=== PATIENT | male | born 1955 | race Caucasian/White ===

== ENCOUNTER 2019-10-21 20:41 | Emergency (ER) | payer BC ==
[2019-10-21] MEDS ORDERED: Ibuprofen 800 MG Tab PO ONE (21:13)
[2019-10-21] MEDS ORDERED: Acetaminophen 500 MG Tab PO ONE (21:13)
--- NOTE | 2019-10-21 21:17 | EDM.PDOC ---
ED HPI GENERAL MEDICAL PROBLEM - General Chief Complaint: Upper Extremity Injury/Pain Stated Complaint: WRIST PAIN Time Seen by Provider: 10/21/19 21:00 Source of Information: Reports: Patient History Limitations: Reports: No Limitations - History of Present Illness INITIAL COMMENTS - FREE TEXT/NARRATIVE: Patient presented to the ED because of right wrist pain. The pain is sharp,9/10 / and worse with movements. there is no recent trauma or injury. - Related Data Allergies Allergy/AdvReac Type Severity Reaction Status Date / Time morphine Allergy Nausea and Verified 02/15/18 12:03 Vomiting Home Meds: Home Meds Aspirin [Halfprin] 81 mg PO DAILY 02/15/18 [History] Gabapentin [Neurontin] 300 mg PO BID 02/15/18 [History] Losartan [Cozaar] 100 mg PO DAILY 02/15/18 [History] Metoprolol Succinate 100 mg PO DAILY 02/15/18 [History] hydroCHLOROthiazide [Hydrochlorothiazide] 50 mg PO DAILY 02/15/18 [History] oxyCODONE 15 mg PO ASDIRECTED PRN 02/15/18 [History] oxyCODONE HCl [Oxycontin] 20 gm PO BID 02/15/18 [History] traZODone HCl [Trazodone HCl] 100 mg PO BEDTIME PRN 02/15/18 [History] Past Medical History HEENT History: Reports: None Cardiovascular History: Reports: Afib, Arrhythmia, Hypertension Respiratory History: Reports: None Gastrointestinal History: Reports: None, Other (See Below) Other Gastrointestinal History: COLITIS Genitourinary History: Reports: None Musculoskeletal History: Reports: Fracture Neurological History: Reports: None Psychiatric History: Reports: Depression Endocrine/Metabolic History: Reports: Obesity/BMI 30+ Hematologic History: Reports: Anticoagulation Therapy Immunologic History: Reports: None Oncologic (Cancer) History: Reports: None Dermatologic History: Reports: None - Infectious Disease History Infectious Disease History: Reports: None - Past Surgical History Head Surgeries/Procedures: Reports: None GI Surgical History: Reports: Colonoscopy Neurological Surgical History: Reports: Spinal Fusion Musculoskeletal Surgical History: Reports: Hip Replacement, Joint Replacement, ORIF Social & Family History - Family History GI: Reports: Colon Polyps Other GI Family History: BROTHERS WITH COLON CANCER - Tobacco Use Smoking Status *Q: Former Smoker Used Tobacco, but Quit: Yes Month/Year Tobacco Last Used: 07/1999 - Caffeine Use Caffeine Use: Reports: Coffee - Recreational Drug Use Recreational Drug Use: No Review of Systems - Review of Systems Review Of Systems: See Below Constitutional: Reports: No Symptoms Ears: Reports: No Symptoms Nose: Reports: No Symptoms Mouth/Throat: Reports: No Symptoms Respiratory: Reports: No Symptoms Cardiovascular: Reports: No Symptoms GI/Abdominal: Reports: No Symptoms Genitourinary: Reports: No Symptoms Musculoskeletal: Reports: Other (wrist pain) Skin: Reports: No Symptoms Neurological: Reports: No Symptoms ED EXAM, GENERAL - Physical Exam Exam: See Below Exam Limited By: No Limitations General Appearance: Alert, No Apparent Distress Ears: Normal Canal Nose: Normal Inspection, Normal Mucosa Throat/Mouth: Normal Inspection, Normal Lips Head: Atraumatic, Normocephalic Neck: Normal Inspection, Supple, Non-Tender, Full Range of Motion Respiratory/Chest: No Respiratory Distress, Lungs Clear, Normal Breath Sounds, No Accessory Muscle Use, Chest Non-Tender Cardiovascular: Normal Peripheral Pulses, Regular Rate, Rhythm, No Edema, No Gallop, No JVD, No Murmur, No Rub, JVD GI/Abdominal: Normal Bowel Sounds, Soft, Non-Tender, No Organomegaly Extremities: Normal Inspection, Normal Range of Motion, Other (tenderness right wrist) Course - Vital Signs Text/Narrative:: ibuprofen 800 mg pox1 tylenol 1000 mg po x1 Last Recorded V/S: Last Vital Signs Temp 37.1 C 10/21/19 20:58 Pulse 110 H 10/21/19 20:58 Resp 14 10/21/19 20:58 BP 149/117 H 10/21/19 20:58 Pulse Ox 96 10/21/19 20:58 - Orders/Labs/Meds Meds: Medications Discontinued Medications Generic Name Dose Route Start Last Admin Trade Name Adrienne PRN Reason Stop Dose Admin Acetaminophen 1,000 mg 10/21/19 21:13 10/21/19 21:27 Tylenol Extra Strength PO 10/21/19 21:14 1,000 mg ONETIME ONE Administration Ibuprofen 800 mg 10/21/19 21:13 10/21/19 21:27 Motrin PO 10/21/19 21:14 800 mg ONETIME ONE Administration Departure - Departure Time of Disposition: 21:15 Disposition: Home, Self-Care 01 Condition: Good Clinical Impression: Sprain of wrist, right - Discharge Information Instructions: Wrist Sprain, Adult Referrals: Jayden Hearn MD [Primary Care Provider] - Forms: ED Department Discharge Additional Instructions: please read discharge instructions on wrist sprain apply ice elevate take 2 aleve with tylenol 1000 mg twice daily as needed for pain follow up as needed Sepsis Event Note - Evaluation Sepsis Screening Result: No Definite Risk - Focused Exam Vital Signs: Vital Signs Temp Pulse Resp BP Pulse Ox 10/21/19 20:58 37.1 C 110 H 14 149/117 H 96 Date Exam was Performed: 10/21/19 Time Exam was Performed: 21:51
== END 2019-10-21 21:20 | disposition home or self-care (01) ==
LOC: FB.ED 20:41
DX: S63.501A Unspecified sprain of right wrist, initial encounter (principal); Z88.5 Allergy status to narcotic agent; I48.91 Unspecified atrial fibrillation; I10 Essential (primary) hypertension; F32.9 Major depressive disorder, single episode, unspecified; E66.9 Obesity, unspecified; Z68.33 Body mass index [BMI] 33.0-33.9, adult; Z79.82 Long term (current) use of aspirin; Z79.899 Other long term (current) drug therapy; Z87.891 Personal history of nicotine dependence; X58.XXXA Exposure to other specified factors, initial encounter
CPT/HCPCS: 99283; A9270

== ENCOUNTER 2021-04-02 07:58 | Emergency (ER) | payer MEDICARE, BC ==
[2021-04-02] MEDS ORDERED: Aspirin 81 MG Tab.Chew PO STA (08:05)
[2021-04-02] MEDS ORDERED: Labetalol 20 MG/4 ML Syringe IVPUSH STA (08:05)
[2021-04-02] MEDS ORDERED: hydrALAZINE 20 MG/ML SDV IVPUSH STA ×2 (08:05→08:53)
[2021-04-02] MEDS: Sodium Chloride 0.9% 10 ML Syringe FLUSH PRN ×2 (08:10→08:40)
--- NOTE | 2021-04-02 08:26 | EDM.PDOC ---
ED HPI GENERAL MEDICAL PROBLEM - General Stated Complaint: Left shoulder pain Time Seen by Provider: 04/02/21 08:00 Source of Information: Reports: Patient History Limitations: Reports: No Limitations - History of Present Illness INITIAL COMMENTS - FREE TEXT/NARRATIVE: Patient presented to the ED because of a left shoulder pain. He attributed it to lifting a 40 lb furniture. He then checked his BP and it was 225/117, denies any chest pain, dyspnea, dizziness,headache, N/V. He noticed a RLE edema for the past week. He didn't take his metoprolol and HCTZ for HTN for 3 days. Left Shoulder Pain Score (Numeric/FACES): 8 - Related Data Allergies Allergy/AdvReac Type Severity Reaction Status Date / Time morphine Allergy Nausea and Verified 04/02/21 09:25 Vomiting Home Meds: Home Meds Aspirin [Halfprin] 81 mg PO DAILY 02/15/18 [History] Gabapentin [Neurontin] 300 mg PO BID 02/15/18 [History] Losartan [Cozaar] 100 mg PO DAILY 02/15/18 [History] Metoprolol Succinate 100 mg PO DAILY 02/15/18 [History] hydroCHLOROthiazide [Hydrochlorothiazide] 50 mg PO DAILY 02/15/18 [History] oxyCODONE 15 mg PO ASDIRECTED PRN 02/15/18 [History] oxyCODONE HCl [Oxycontin] 20 gm PO BID 02/15/18 [History] traZODone HCl [Trazodone HCl] 100 mg PO BEDTIME PRN 02/15/18 [History] Past Medical History HEENT History: Reports: None Cardiovascular History: Reports: Afib, Arrhythmia, Hypertension Respiratory History: Reports: None Gastrointestinal History: Reports: None, Other (See Below) Other Gastrointestinal History: COLITIS Genitourinary History: Reports: None Musculoskeletal History: Reports: Fracture Neurological History: Reports: None Psychiatric History: Reports: Depression Endocrine/Metabolic History: Reports: Obesity/BMI 30+ Hematologic History: Reports: Anticoagulation Therapy Immunologic History: Reports: None Oncologic (Cancer) History: Reports: None Dermatologic History: Reports: None - Infectious Disease History Infectious Disease History: Reports: None - Past Surgical History Head Surgeries/Procedures: Reports: None GI Surgical History: Reports: Colonoscopy Neurological Surgical History: Reports: Spinal Fusion Musculoskeletal Surgical History: Reports: Hip Replacement, Joint Replacement, ORIF Social & Family History - Family History Family Medical History: No Pertinent Family History GI: Reports: Colon Polyps Other GI Family History: BROTHERS WITH COLON CANCER - Caffeine Use Caffeine Use: Reports: Coffee ED ROS GENERAL - Review of Systems Review Of Systems: See Below Constitutional: Reports: No Symptoms HEENT: Reports: No Symptoms Respiratory: Reports: No Symptoms Cardiovascular: Reports: No Symptoms Endocrine: Reports: No Symptoms GI/Abdominal: Reports: No Symptoms : Reports: No Symptoms Musculoskeletal: Reports: Shoulder Pain Skin: Reports: No Symptoms Neurological: Reports: No Symptoms Psychiatric: Reports: No Symptoms ED EXAM, GENERAL - Physical Exam Exam: See Below Exam Limited By: No Limitations General Appearance: Alert, No Apparent Distress Eye Exam: Bilateral Eye: PERRL Ears: Normal External Exam, Normal Canal Nose: Normal Inspection, Normal Mucosa, No Blood Throat/Mouth: Normal Inspection, Normal Lips, Normal Teeth, Normal Gums Head: Atraumatic, Normocephalic Neck: Normal Inspection, Supple, Non-Tender, Full Range of Motion Respiratory/Chest: No Respiratory Distress, Lungs Clear, Normal Breath Sounds, No Accessory Muscle Use, Chest Non-Tender Cardiovascular: Normal Peripheral Pulses, Regular Rate, Rhythm, No Edema, No Gallop, No JVD, No Murmur GI/Abdominal: Normal Bowel Sounds, Soft, Non-Tender, No Organomegaly, No Distention, No Abnormal Bruit Back Exam: Normal Inspection, Full Range of Motion Extremities: Normal Inspection, Normal Range of Motion, Non-Tender, No Pedal Edema, Normal Capillary Refill, Pedal Edema Neurological: Alert, Oriented, CN II-XII Intact, Normal Cognition Psychiatric: Normal Affect, Normal Mood Skin Exam: Warm #1 Interpretation EKG Date: 04/02/21 Time: 07:56 Rhythm: NSR Rate (Beats/Min): 84 [place]: Normal P-Wave: Present QRS: Normal ST-T: Normal QT: Normal UT/PQ Interval: 213 Comparison: No Change EKG Interpretation Comments: NSR PAC's Course - Vital Signs Text/Narrative:: Lab/EKG result was reviewed and discussed with patient ASA 324 mg PO x1 Labetalol 20 mg IV x1 Hydralazine 20 mg IV x2 Clonidine 0.3 mg PO x1 Ativan 1 mg IV x1 Last Recorded V/S: Last Vital Signs Temp 36.9 C 04/02/21 08:00 Pulse 96 09/21/21 08:00 Resp 10 L 04/02/21 08:00 BP 192/119 H 04/02/21 09:08 Pulse Ox 96 04/02/21 08:00 - Orders/Labs/Meds Orders: Active Orders 24 hr Category Date Time Status Sodium Chloride 0.9% [Saline Flush] Med 04/02/21 08:05 Active 10 ml FLUSH ASDIRECTED PRN Saline Lock Insert [OM.PC] Routine Oth 04/02/21 08:05 Ordered EKG 12 Lead [EK] Routine Ther 04/02/21 08:05 Ordered Medication Orders Sodium Chloride (Sodium Chloride 0.9% 10 Ml Syringe) 10 ml FLUSH ASDIRECTED PRN PRN Reason: Keep Vein Open Last Admin: 04/02/21 08:40 Dose: 10 ml Documented by: Admin: 04/02/21 08:10 Dose: 10 ml Documented by: [place] Labs: Laboratory Tests 04/02/21 04/02/21 04/02/21 Range/Units 08:24 08:24 08:24 WBC 10.9 H (3.2-10.1) x10-3/uL RBC 4.48 (3.90-5.90) x10(6)uL Hgb 13.7 (12.9-17.7) g/dL Hct 40.7 (38.3-50.1) % MCV 90.8 (80.8-98.7) fL MCH 30.5 (27.0-33.3) pg MCHC 33.6 (28.7-35.3) g/dL RDW 13.4 (12.4-15.0) % Plt Count 301 (117-477) x10(3)uL MPV 6.9 (6.7-11.0) fL Neut % (Auto) 79.3 H (40.3-71.8) % Lymph % (Auto) 11.2 L (15.8-45.3) % [place] % (Auto) 6.6 (5.5-15.2) % Eos % (Auto) 2.1 (0.1-6.8) % Baso % (Auto) 0.8 (0.3-3.8) % Neut # (Auto) 8.7 H (1.7-6.9) x10-3/uL Lymph # (Auto) 1.2 (0.5-4.5) x10-3/uL [place] # (Auto) 0.7 (0.0-1.2) x10-3/uL Eos # (Auto) 0.2 (0.0-0.6) x10-3/uL Baso # (Auto) 0.1 (0.0-0.3) x10-3/uL Sodium 138 (135-145) mmol/L Potassium 3.8 (3.5-5.3) mmol/L Chloride 98 L (100-110) mmol/L Carbon Dioxide 31 (21-32) mmol/L BUN 17 (7-18) mg/dL Creatinine 1.0 (0.70-1.30) mg/dL Est Cr Clr Drug Dosing TNP Estimated GFR (MDRD) > 60 (>60) BUN/Creatinine Ratio 17.0 (9-20) Glucose 145 H (80-116) mg/dL Calcium 8.9 (8.6-10.2) mg/dL Total Bilirubin 0.9 (0.1-1.3) mg/dL AST 35 H (5-25) IU/L ALT 31 (12-36) U/L Alkaline Phosphatase 84 (56-112) IU/L Troponin I 9.1 (4.0-60.3) pg/mL NT-Pro-B Natriuret Pep 366 H (<=125) pg/mL Total Protein 8.1 H (6.0-8.0) g/dL Albumin 4.0 (3.2-4.6) g/dL Globulin 4.1 g/dL Albumin/Globulin Ratio 1.0 Meds: Medications Generic Name Dose Route Start Last Admin Trade Name Freq PRN Reason Stop Dose Admin Sodium Chloride 10 ml 04/02/21 08:05 04/02/21 08:40 Sodium Chloride 0.9% 10 Ml Syringe FLUSH 10 ml ASDIRECTED PRN Administration Keep Vein Open Discontinued Medications Generic Name Dose Route Start Last Admin Trade Name Freq PRN Reason Stop Dose Admin Aspirin 324 mg 04/02/21 08:05 04/02/21 08:27 Aspirin 81 Mg Tab.Chew PO 04/02/21 08:06 324 mg NOW STA Administration Clonidine HCl 0.3 mg 04/02/21 08:53 04/02/21 09:08 Clonidine 0.1 Mg Tab PO 04/02/21 08:54 0.3 mg NOW STA Administration Hydralazine HCl 20 mg 04/02/21 08:05 04/02/21 08:27 Hydralazine 20 Mg/Ml Sdv IVPUSH 04/02/21 08:06 20 mg NOW STA Administration Hydralazine HCl 20 mg 04/02/21 08:53 04/02/21 09:08 Hydralazine 20 Mg/Ml Sdv IVPUSH 04/02/21 08:54 20 mg NOW STA Administration Labetalol HCl 20 mg 04/02/21 08:05 04/02/21 08:39 Labetalol 20 Mg/4 Ml Syringe IVPUSH 04/02/21 08:06 20 mg NOW STA Administration Protocol Lorazepam 1 mg 04/02/21 08:57 04/02/21 09:08 Lorazepam 2 Mg/Ml Sdv IVPUSH 04/02/21 08:58 1 mg NOW STA Administration Metoprolol Succinate 100 mg 04/02/21 09:40 Metoprolol Succinate 100 Mg Tab.Er PO 04/02/21 09:41 NOW STA Departure - Departure Time of Disposition: 09:20 Disposition: Home, Self-Care 01 Condition: Good Clinical Impression: Hypertensive crisis, Shoulder pain, left Instructions: Hypertension, Adult, [id number] Referrals: PCP,None [Primary Care Provider] - Forms: ED Department Discharge Additional Instructions: Please read discharge instructions on hypertensive crisis Never quit taking your BP medications-it can cause hypertensive crisis wherein your BP goes really high. Hypertensive crisis can cause strike, heart attack, heart failure, kidney failure Follow up as needed Sepsis Event Note (ED) - Focused Exam Vital Signs: Vital Signs Temp Pulse Resp BP BP Pulse Ox 04/02/21 09:08 192/119 H 04/02/21 08:00 36.9 C 96 10 L 215/124 H 96 - My Orders Last 24 Hours: My Active Orders 04/02/21 08:05 Sodium Chloride 0.9% [Saline Flush] 10 ml FLUSH ASDIRECTED PRN Saline Lock Insert [OM.PC] Routine EKG 12 Lead [EK] Routine - Assessment/Plan Last 24 Hours: My Active Orders 04/02/21 08:05 Sodium Chloride 0.9% [Saline Flush] 10 ml FLUSH ASDIRECTED PRN Saline Lock Insert [OM.PC] Routine EKG 12 Lead [EK] Routine
[2021-04-02] MEDS ORDERED: cloNIDine 0.1 MG Tab PO STA (08:53)
[2021-04-02] MEDS ORDERED: LORazepam 2 MG/ML SDV IVPUSH STA (08:57)
[2021-04-02] MEDS ORDERED: Metoprolol Succinate 100 MG Tab.ER PO STA (09:40)
== END 2021-04-02 10:00 | disposition home or self-care (01) ==
LOC: FB.ED 07:58
DX: I16.9 Hypertensive crisis, unspecified (principal); M25.512 Pain in left shoulder; E66.9 Obesity, unspecified; Z88.5 Allergy status to narcotic agent; Z79.82 Long term (current) use of aspirin; Z79.899 Other long term (current) drug therapy; Z68.41 Body mass index [BMI] 40.0-44.9, adult
CPT/HCPCS: 36415; 80053; 83880; 84484; 85025; 93005; 96374; 96375; 96376; 99283-25; A9270-GY; J0360; J2060; J3490